=== PATIENT | female | born 1950 | race Caucasian/White ===

== ENCOUNTER 2023-09-17 10:17 | Emergency (ER) | payer OTHER, SELFPAY ==
--- NOTE | ~2023-09-17 | XR_ITS ---
EXAMINATION: XR femur RT min 2V INDICATION: Right leg pain TECHNIQUE: Two views of the right femur are obtained on four radiographs. COMPARISON: None available FINDINGS: Bone alignment is normal. There is no fracture of the femur. There is a nondisplaced fractu re of the fibular head. The soft tissues are unremarkable. There is mild osteoarthritis of the knee. IMPRESSION: 1. No fracture of the femur. 2. Nondisplaced fracture of the fibular head. Reviewed, dictated and finalized at location B. LEY WORKER
--- NOTE | ~2023-09-17 | XR_ITS ---
EXAMINATION: XR knee RT min 4V DATE: 09/17/2023 13:20 INDICATION: Right knee pain TECHNIQUE: Four views of the right knee were obtained. COMPARISON: None. FINDINGS: Bone alignment is normal. There is a nondisplaced fracture at the lateral aspect of the fib ular head. There is mild tricompartmental osteoarthritis characterized by tiny marginal osteophytes. No joint effusion/synovitis. Soft tissues are unremarkable. IMPRESSION: 1. Nondisplaced fracture at the lateral aspect of the fibular head. Reviewed, dictated and finalized at location B. TRUCTION SITE MANAGER
[2023-09-17 10:26] VITALS: BP 158/87; PULSE 93; RESP 16; TEMP 36.8; O2SAT 97
[2023-09-17] MEDS: ACETAMINOPHEN/CODEINE (*CRX) 300/30 MG TABLET 1 TAB PO (13:31)
[2023-09-17] MEDS: LIDOCAINE 5% PATCH 1 PATCH TRANSDERM (13:31)
--- NOTE | 2023-09-17 13:42 | ED.LOWEXIN ---
HPI - Extremity Injury (Lower) General Chief Complaint: Extremity Injury, Lower Stated Complaint: R leg pain Time Seen by Provider: 09/17/23 11:35 History of Present Illness HPI Narrative: 73-year-old female reports for evaluation for right posterior femur pain and mild right knee pain after a fall that occurred 4 days ago. Patient states she was walking in when she slipped on a clothes drying rack changer that was on the floor. States she landed on her bottom and her right leg was fully extended. States since then she has had pain to her posterior thigh. She did not hit her head or lose consciousness. Denies neck pain or back pain, denies other injuries acquired. 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 Related Data Allergies Allergy/AdvReac Type Severity Reaction Status Date / Time ibuprofen Allergy Intermediate Anaphylactic Verified 04/22/19 12:46 Shock Review of Systems Review of Systems: CONSTITUTIONAL: Denies fever, chills, or sweats. EYES: Denies visual changes, redness, or discharge. ENT: Denies rhinorrhea, congestion, sore throat, or otalgia. CARDIOVASCULAR: Denies chest pain, palpitations, or edema. RESPIRATORY: Denies cough or dyspnea. GASTROINTESTINAL: Denies abdominal pain, nausea, vomiting, or diarrhea. GENITOURINARY: Denies dysuria or hematuria. SKIN: Denies rash or itching. MUSCULOSKELETAL: See HPI NEUROLOGIC: Denies headache, numbness, or weakness. PSYCHIATRIC: Denies anxiety or depression. Exam Narrative: GENERAL: Well-appearing, well-nourished, and in no acute distress. HEAD: Normocephalic, atraumatic. EYES: PERRLA and EOMI. ENT: Nares clear, no rhinorrhea or epistaxis. Mucous membranes moist. NECK: Supple. No midline cervical spinous, no tenderness or deformities. BACK: No thoracolumbar spinous tenderness, step-offs or deformities. CHEST: Clear to auscultation. No respiratory distress. HEART: Regular rate and rhythm. No murmur heard. Normal peripheral pulses. ABDOMEN: Soft, nontender, nondistended, normal active bowel sounds. EXTREMITIES: RLE: Tenderness to the posterior femur without overlying edema, erythema or deformity. There is ecchymosis to the distal femur just superior to the knee. No tenderness to patella, medial or lateral joint line. Mild tenderness to proximal fibula. No tenderness to the hip or remainder of the tib-fib or ankle. Full range of motion of hip, knee and ankle. DP pulse 2 +. Sensation intact. Compartments throughout are soft. SKIN: Warm, dry, no rash. NEURO: No focal deficits. Alert and oriented x3 Course Vital Signs Vital signs: Vital Signs Temperature 98.2 F 09/17/23 10:26 Pulse Rate 93 09/17/23 10:26 Respiratory Rate 16 09/17/23 10:26 Blood Pressure 158/87 H 09/17/23 10:26 Pulse Oximetry 97 09/17/23 10:26 Temperature 98.2 F 09/17/23 10:26 Pulse Rate 93 09/17/23 10:26 Respiratory Rate 16 09/17/23 10:26 Blood Pressure 158/87 H 09/17/23 10:26 Pulse Oximetry 97 09/17/23 10:26 MDM - Extremity Injury (Lower) MDM Narrative Medical decision making narrative: 73-year-old female reports for evaluation after a mechanical fall that occurred 4 days ago. See HPI for further history. She did not hit her head or lose consciousness. Exam is significant for the above. Compartments are soft, she is neurovascularly intact. X-ray of the femur shows no fracture of the femur. There is a nondisplaced fracture of the fibular head as seen on the radiograph. Patient placed in a posterior OCL and provided crutches. She is prescribed Tylenol 3s by her PCP which she states she will take for pain. Encouraged rice and close orthopedic follow-up. Referral provided. Strict ED return precautions discussed. She is agreeable with the plan verbalized understanding. Discharged in stable condition. Discharge Plan Discharge Clinical Impression: Closed fibular fracture Qualifiers: Encounter type: initial en
[2023-09-17] MEDS: HYDROmorphone HCL INJ (*CRX) 1 MG/ML SYR IM (15:19)
[2023-09-17 15:20] VITALS: BP 150/80; PULSE 70; RESP 18; O2SAT 98
== END 2023-09-17 15:25 | disposition home or self-care (01) ==
PROVIDERS: Emergency Provider Physician Assistant; PCP Student in an Organized Health Care Education/Training Program
DX: S82.831A Other fracture of upper and lower end of right fibula, initial encounter for closed fracture (principal); W18.09XA Striking against other object with subsequent fall, initial encounter
CPT/HCPCS: 29505; 73552; 73564; 96372; 99284; A9270; J1170

== ENCOUNTER 2024-09-30 13:36 | Emergency (ER) | payer OTHER, SELFPAY ==
--- NOTE | ~2024-09-30 | XR_ITS ---
XR chest 2V Ordering provider: Odalis Rogers MD History: 74 years Female with . CP N/V AND SHORT OF BREATH INTERMITTENTLY SINCE . Comparison: April 22, 2019 FINDINGS: MEDIASTINUM: The cardiac silhouette is not enlarged. LUNGS: No infiltrates, effusions or pneumothorax. OTHER: No free air under the diaphragm. Degenerative changes of the spine with S-shaped scoliosis. IMPRESSION: No acute cardiopulmonary pathology. Reviewed, dictated and finalized at location A. IC[employer] SPECIALIST
--- NOTE | 2024-09-30 13:37 | ECG_ITS ---
Test Date: 2024-09-30 14:03:10 Measurements Intervals [place] Rate: 70 P: 10 TX: 164 QRS: -24 QRSD: 82 T: -2 QT: 401 QTc: 433 Interpretive Statements SINUS RHYTHM VOLTAGE CRITERIA FOR LVH [MEETS CRITERIA IN ONE OF: R(aVL), S(V1), R(V5), R(V5/V6)+S(V1)] POSSIBLE ANTERIOR MYOCARDIAL INFARCTION , OF INDETERMINATE AGE [30 ms Q WAVE IN V3/V4, OR R < 0.2 mV IN V4] No previous ECG available for comparison Electronically Signed On 10-04-2024 14:31:36 MARKETING TECHNOLOGIST by Tyrone Perez M.D.
[2024-09-30 13:46] VITALS: BP 130/67; PULSE 86; RESP 20; TEMP 36.3; O2SAT 99
--- NOTE | 2024-09-30 16:11 | ED_ITS ---
HPI - Chest Pain General Chief Complaint: Chest Pain <TRISTON Larkin Last Filed: 09/30/24 16:14> Stated Complaint: Chest pain/vomiting/UTI symptoms <TRISTON Larkin Last Filed: 09/30/24 16:14> Time Seen by Provider: 09/30/24 23:02 <TRISTON Larkin Last Filed: 09/30/24 16:14> Focused HPI: 74-year-old female with history of hypertension and CHF presents to the ED for multiple medical complaints. Patient states she has had chest pain to the anterior aspect of her chest, feels like someone is sitting on her chest for 1 week. No radiating symptoms, no exertional symptoms. Also reporting a productive cough and shortness of breath which has increased her baseline. Reports lower extremity edema that is unchanged from her baseline. Patient is also reporting a vaginal discharge for about 1 month. States it is green and brown. She is not sexually active and denies possibility of STDs. She is concerned she may have urinary tract infection and states her urine is malodorous. GENERAL: Well-appearing, well-nourished, and in no acute distress. HEAD: Normocephalic, atraumatic. CHEST: Clear to auscultation. ?No respiratory distress. HEART: Regular rate and rhythm.? NEURO: ?Alert and oriented x3. Patient screened in triage and initial orders placed.? ?Additional care and disposition to be based upon?diagnostic testing and treatment. <TRISTON Larkin Last Filed: 09/30/24 16:14> Related Data Home Medications: Home Medications ?Medication ?Instructions ?Recorded ?Confirmed ?Last Taken ?Type alprazolam PO DAILY 10/02/23 Unknown History pravastatin PO DAILY 10/02/23 Unknown History triamterene PO DAILY 10/02/23 Unknown History <TRISTON Larkin Last Filed: 09/30/24 16:14> Allergies/Adverse Reactions: Allergies Allergy/AdvReac Type Severity Reaction Status Date / Time ibuprofen Allergy Intermediate Anaphylactic Verified 09/30/24 13:51 Shock <TRISTON Larkin Last Filed: 09/30/24 16:14> Review of Systems 2 Review of Systems: CONSTITUTIONAL: Denies fever CARDIOVASCULAR: Reports chest pain RESPIRATORY: Reports cough and dyspnea. GASTROINTESTINAL: Reports nausea, vomiting GENITOURINARY: Reports vaginal discharge. Denies dysuria or hematuria. PSYCHIATRIC: Reports anxiety <Maria A Fernandes PA-C - Last Filed: 10/01/24 02:09> All systems reviewed & are unremarkable except as noted in HPI and below < Maria A Fernandes PA-C - Last Filed: 10/01/24 02:09> [facility] Past Medical History Medical History: Medical History (Updated 10/01/24 @ 02:05 by Maria A Fernandes PA-C) History of hyperlipidemia <Ginny Camarillo PA-C - Last Filed: 09/30/24 16:14> Social History Social History: Social History (Updated 10/02/23 @ 13:55 by Cira Mejia, [facility]) Smoking status: Never smoker Alcohol intake: never Occupation/Education: occupation 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 HEAD: Normocephalic, atraumatic. EYES: EOMI. ENT: Nares clear, no rhinorrhea or epistaxis. Mucous membranes moist. Oropharynx without tonsillar hypertrophy exudate or other lesions. Bilateral TMs pearly hamm non-bulging NECK: Supple. No adenopathy or masses. CHEST: Clear to auscultation. No respiratory distress. No wheezes rales or rhonchi HEART: Regular rate and rhythm. No murmur heard. Normal peripheral pulses. ABDOMEN: Soft, nontender, nondistended, normal active bowel sounds. EXTREMITIES: Normal range of motion. No edema. SKIN: Warm, dry, no rash. NEURO: No focal deficits. Alert and oriented x3. PSYCH: Normal mood and affect PELVIC: Normal external genitalia. Small amount of yellow discharge in the vaginal vault <Maria A Fernandes PA-C - Last Filed: 10/01/24 02:09> Course Course Emergency Course: Patient updated on her workup and agrees with plan of care. Resting comfortably. Tolerating oral intake. <Maria A Fernandes PA-C - Last Filed: 10/01/24 02:09> Vital Signs Vital signs: Vital Signs Temperature 97.4 F L 09/30/24 13:46 Pulse Rate 86 09/30/24 13:46 Respiratory Rate 20 09/30/24 13:46 Blood Pressure 130/67 09/30/24 13:46 Pulse Oximetry 99 09/30/24 13:46 Oxygen Delivery Room Air 09/30/24 13:46 Temperature 98.8 F 09/30/24 17:41 Pulse Rate 89 10/01/24 01:40 Respiratory Rate 18 10/01/24 01:40 Blood Pressure 145/63 H 10/01/24 01:40 Pulse Oximetry 100 10/01/24 01:40 Oxygen Delivery Room Air 09/30/24 22:53 <Ginny Camarillo PA-C - Last Filed: 09/30/24 16:14> Vital Signs Temperature 97.4 F L 09/30/24 13:46 Pulse Rate 86 09/30/24 13:46 Respiratory Rate 20 09/30/24 13:46 Blood Pressure 130/67 09/30/24 13:46 Pulse Oximetry 99 09/30/24 13:46 Oxygen Delivery Room Air 09/30/24 13:46 Temperature 98.8 F 09/30/24 17:41 Pulse Rate 89 10/01/24 01:40 Respiratory Rate 18 10/01/24 01:40 Blood Pressure 145/63 H 10/01/24 01:40 Pulse Oximetry 100 10/01/24 01:40 Oxygen Delivery Room Air 09/30/24 22:53 <Maria A Fernandes PA-C - Last Filed: 10/01/24 02:09> MDM - Chest Pain MDM Narrative Medical decision making narrative: Patient presents emergency department with several complaints. Reporting chest pain, shortness of breath, vomiting, vaginal discharge. She is afebrile nontoxic appearing. Her vitals are stable. CBC with mild leukocytosis to 11.9. Metabolic panel with evidence of mild dehydration. Urine with evidence of infection. Influenza, RSV and COVID screens are negative. Chest x-ray without acute cardiopulmonary abnormality. EKG without acute ST changes. Baseline, 3 hour troponin negative. Patient given Protonix, Zofran. Resting comfortably. Tolerating oral intake. Patient updated on her workup and agrees with plan of care. Will be started on oral antibiotics for UTI. She was given warnings to return the ER <Maria A Fernandes PA-C - Last Filed: 10/01/24 02:09> Differential Diagnosis Differential diagnosis: Likely stable angina, atypical chest pain, costochondritis and other (pneumonia, gastroenteritis, UTI, influenza, RSV, COVID) <Maria A Fernandes PA-C - Last Filed: 10/01/24 02:09> Lab Data Attestation: I reviewed the patient's lab results. <Maria A Fernandes PA-C - Last Filed: 10/01/24 02:09> Result diagrams: 09/30/24 16:30 09/30/24 16:30 <Ginny Camarillo PA-C - Last Filed: 09/30/24 16:14> Labs: Lab Results 09/30/24 09/30/24 10/01/24 Range/Units 16:30 19:12 00:33 WBC 11.9 H (4.5-10.0) K/mm3 RBC 4.42 (4.2-5.4) M/mm3 Hgb 14.3 (12.0-15.0) g/dL Hct 41.5 (37.0-47.0) % MCV 93.9 (80-100) fl MCH 32.4 (26-34) pg MCHC 34.5 (32-36) g/dl RDW 13.1 (11.5-14.5) % Plt Count 365 (150-375) k/mm3 MPV 9.3 (7.4-10.4) fl Immature Gran % (Auto) 0.3 (0-0.5) % Neut % (Auto) 71.6 (45.5-73.1) % Lymph % (Auto) 18.2 L (18.3-44.2) % [place] % (Auto) 8.5 (2.6-8.5) % Eos % (Auto) 0.8 (0-4.4) % Baso % (Auto) 0.6 (0.2-1.2) % Lymph # (Auto) 2.17 (0.9-3.2) K/mm3 [place] # (Auto) 1.0 H (0.1-0.6) K/mm3 Eos # (Auto) 0.1 (0-0.3) K/mm3 Baso # (Auto) 0.1 (0.0-0.1) K/mm3 Abs Immat Gran (auto) 0.04 H (0.00-0.031) K/mm3 Absolute Neuts (auto) 8.6 H (1.3-6.7) K/mm3 Absolute Nucleated RBC 0.000 (0.0-0.012) K/mm3 Nucleated RBC % 0.0 (0.0-0.2) % PT 13.2 (11.1-14.7) Seconds INR 1.0 APTT 30.5 (22.3-36.8) Seconds Sodium 137 (137-145) mmol/L Potassium 3.9 (3.4-5.0) mmol/L Chloride 104 (98-107) mmol/L Carbon Dioxide 27 (22-30) mmol/L Anion Gap 6 (4-12) mmol/L BUN 39 H (7-17) mg/dL Creatinine 1.20 H (0.7-1.0) mg/dL Estim Creat Clear Calc Not Reportable Estimated GFR 44 L (59 - ) Glucose 90 (65-110) mg/dL Calcium 10.3 H (8.4-10.2) mg/dL Total Bilirubin 1.1 (0.2-1.3) mg/dL AST 20 (14-36) U/L ALT 15 (6-35) U/L Alkaline Phosphatase 105 (38-126) U/L Troponin I < 0.012 < 0.012 (0.000-0.034) ng/mL Total Protein 8.0 (6.3-8.2) g/dL Albumin 4.6 (3.5-5.1) g/dL Lipase 136 (23-300) U/L Urine Color Yellow (Yellow) Urine Appearance Clear (Clear) Urine pH 5.0 (5.0-9.0) Ur Specific [place] 1.012 (1.001-1.035) Urine Protein Negative (Negative) mg/dL Urine Glucose (UA) Negative (Negative) mg/dL Urine Ketones Negative (Negative) mg/dL Ur Blood (Man) Trace (Negative) Urine Nitrate Negative (Negative) Urine Bilirubin Negative (Negative) Urine Urobilinogen 0.2 (<2.0) mg/dL Leukocyte Esterase Rfl 3+ H (Negative) LORENZO/UL Urine RBC 0-2 (0-2) /hpf Urine WBC >100 H (0-3) /hpf Ur Squamous Epith Cells None seen (Few) /hpf Urine Bacteria None seen /hpf Urine Casts 3-5 C. trachomatis (PCR) Influenza A (RT-PCR) Negative (Negative) Influenza B (RT-PCR) Negative (Negative) N. gonorrhoeae (PCR) RSV (RT-PCR) Negative (Negative) SARS-CoV-2 RNA (RT-PCR) Negative (Negative) T. vaginalis (PCR) (NOT DETECTE) Bact Vaginosis Panel Pending 10/01/24 Range/Units 00:36 WBC (4.5-10.0) K/mm3 RBC (4.2-5.4) M/mm3 Hgb (12.0-15.0) g/dL Hct (37.0-47.0) % MCV (80-100) fl MCH (26-34) pg MCHC (32-36) g/dl RDW (11.5-14.5) % Plt Count (150-375) k/mm3 MPV (7.4-10.4) fl Immature Gran % (Auto) (0-0.5) % Neut % (Auto) (45.5-73.1) % Lymph % (Auto) (18.3-44.2) % [place] % (Auto) (2.6-8.5) % Eos % (Auto) (0-4.4) % Baso % (Auto) (0.2-1.2) % Lymph # (Auto) (0.9-3.2) K/mm3 [place] # (Auto) (0.1-0.6) K/mm3 Eos # (Auto) (0-0.3) K/mm3 Baso # (Auto) (0.0-0.1) K/mm3 Abs Immat Gran (auto) (0.00-0.031) K/mm3 Absolute Neuts (auto) (1.3-6.7) K/mm3 Absolute Nucleated RBC (0.0-0.012) K/mm3 Nucleated RBC % (0.0-0.2) % PT (11.1-14.7) Seconds INR APTT (22.3-36.8) Seconds Sodium (137-145) mmol/L Potassium (3.4-5.0) mmol/L Chloride (98-107) mmol/L Carbon Dioxide (22-30) mmol/L Anion Gap (4-12) mmol/L BUN (7-17) mg/dL Creatinine (0.7-1.0) mg/dL Estim Creat Clear Calc Estimated GFR (59 - ) Glucose (65-110) mg/dL Calcium (8.4-10.2) mg/dL Total Bilirubin (0.2-1.3) mg/dL AST (14-36) U/L ALT (6-35) U/L Alkaline Phosphatase (38-126) U/L Troponin I (0.000-0.034) ng/mL Total Protein (6.3-8.2) g/dL Albumin (3.5-5.1) g/dL Lipase (23-300) U/L Urine Color (Yellow) Urine Appearance (Clear) Urine pH (5.0-9.0) Ur Specific [place] (1.001-1.035) Urine Protein (Negative) mg/dL Urine Glucose (UA) (Negative) mg/dL Urine Ketones (Negative) mg/dL Ur Blood (Man) (Negative) Urine Nitrate (Negative) Urine Bilirubin (Negative) Urine Urobilinogen (<2.0) mg/dL Leukocyte Esterase Rfl (Negative) LORENZO/UL Urine RBC (0-2) /hpf Urine WBC (0-3) /hpf Ur Squamous Epith Cells (Few) /hpf Urine Bacteria /hpf Urine Casts C. trachomatis (PCR) Pending Influenza A (RT-PCR) (Negative) Influenza B (RT-PCR) (Negative) N. gonorrhoeae (PCR) Pending RSV (RT-PCR) (Negative) SARS-CoV-2 RNA (RT-PCR) (Negative) T. vaginalis (PCR) Not detected (NOT DETECTE) Bact Vaginosis Panel <Ginny Camarillo PA-C - Last Filed: 09/30/24 16:14> Lab Results 09/30/24 09/30/24 10/01/24 Range/Units 16:30 19:12 00:33 WBC 11.9 H (4.5-10.0) K/mm3 RBC 4.42 (4.2-5.4) M/mm3 Hgb 14.3 (12.0-15.0) g/dL Hct 41.5 (37.0-47.0) % MCV 93.9 (80-100) fl MCH 32.4 (26-34) pg MCHC 34.5 (32-36) g/dl RDW 13.1 (11.5-14.5) % Plt Count 365 (150-375) k/mm3 MPV 9.3 (7.4-10.4) fl Immature Gran % (Auto) 0.3 (0-0.5) % Neut % (Auto) 71.6 (45.5-73.1) % Lymph % (Auto) 18.2 L (18.3-44.2) % [place] % (Auto) 8.5 (2.6-8.5) % Eos % (Auto) 0.8 (0-4.4) % Baso % (Auto) 0.6 (0.2-1.2) % Lymph # (Auto) 2.17 (0.9-3.2) K/mm3 [place] # (Auto) 1.0 H (0.1-0.6) K/mm3 Eos # (Auto) 0.1 (0-0.3) K/mm3 Baso # (Auto) 0.1 (0.0-0.1) K/mm3 Abs Immat Gran (auto) 0.04 H (0.00-0.031) K/mm3 Absolute Neuts (auto) 8.6 H (1.3-6.7) K/mm3 Absolute Nucleated RBC 0.000 (0.0-0.012) K/mm3 Nucleated RBC % 0.0 (0.0-0.2) % PT 13.2 (11.1-14.7) Seconds INR 1.0 APTT 30.5 (22.3-36.8) Seconds Sodium 137 (137-145) mmol/L Potassium 3.9 (3.4-5.0) mmol/L Chloride 104 (98-107) mmol/L Carbon Dioxide 27 (22-30) mmol/L Anion Gap 6 (4-12) mmol/L BUN 39 H (7-17) mg/dL Creatinine 1.20 H (0.7-1.0) mg/dL Estim Creat Clear Calc Not Reportable Estimated GFR 44 L (59 - ) Glucose 90 (65-110) mg/dL Calcium 10.3 H (8.4-10.2) mg/dL Total Bilirubin 1.1 (0.2-1.3) mg/dL AST 20 (14-36) U/L ALT 15 (6-35) U/L Alkaline Phosphatase 105 (38-126) U/L Troponin I < 0.012 < 0.012 (0.000-0.034) ng/mL Total Protein 8.0 (6.3-8.2) g/dL Albumin 4.6 (3.5-5.1) g/dL Lipase 136 (23-300) U/L Urine Color Yellow (Yellow) Urine Appearance Clear (Clear) Urine pH 5.0 (5.0-9.0) Ur Specific [place] 1.012 (1.001-1.035) Urine Protein Negative (Negative) mg/dL Urine Glucose (UA) Negative (Negative) mg/dL Urine Ketones Negative (Negative) mg/dL Ur Blood (Man) Trace (Negative) Urine Nitrate Negative (Negative) Urine Bilirubin Negative (Negative) Urine Urobilinogen 0.2 (<2.0) mg/dL Leukocyte Esterase Rfl 3+ H (Negative) LORENZO/UL Urine RBC 0-2 (0-2) /hpf Urine WBC >100 H (0-3) /hpf Ur Squamous Epith Cells None seen (Few) /hpf Urine Bacteria None seen /hpf Urine Casts 3-5 C. trachomatis (PCR) Influenza A (RT-PCR) Negative (Negative) Influenza B (RT-PCR) Negative (Negative) N. gonorrhoeae (PCR) RSV (RT-PCR) Negative (Negative) SARS-CoV-2 RNA (RT-PCR) Negative (Negative) T. vaginalis (PCR) (NOT DETECTE) Bact Vaginosis Panel Pending 10/01/24 Range/Units 00:36 WBC (4.5-10.0) K/mm3 RBC (4.2-5.4) M/mm3 Hgb (12.0-15.0) g/dL Hct (37.0-47.0) % MCV (80-100) fl MCH (26-34) pg MCHC (32-36) g/dl RDW (11.5-14.5) % Plt Count (150-375) k/mm3 MPV (7.4-10.4) fl Immature Gran % (Auto) (0-0.5) % Neut % (Auto) (45.5-73.1) % Lymph % (Auto) (18.3-44.2) % [place] % (Auto) (2.6-8.5) % Eos % (Auto) (0-4.4) % Baso % (Auto) (0.2-1.2) % Lymph # (Auto) (0.9-3.2) K/mm3 [place] # (Auto) (0.1-0.6) K/mm3 Eos # (Auto) (0-0.3) K/mm3 Baso # (Auto) (0.0-0.1) K/mm3 Abs Immat Gran (auto) (0.00-0.031) K/mm3 Absolute Neuts (auto) (1.3-6.7) K/mm3 Absolute Nucleated RBC (0.0-0.012) K/mm3 Nucleated RBC % (0.0-0.2) % PT (11.1-14.7) Seconds INR APTT (22.3-36.8) Seconds Sodium (137-145) mmol/L Potassium (3.4-5.0) mmol/L Chloride (98-107) mmol/L Carbon Dioxide (22-30) mmol/L Anion Gap (4-12) mmol/L BUN (7-17) mg/dL Creatinine (0.7-1.0) mg/dL Estim Creat Clear Calc Estimated GFR (59 - ) Glucose (65-110) mg/dL Calcium (8.4-10.2) mg/dL Total Bilirubin (0.2-1.3) mg/dL AST (14-36) U/L ALT (6-35) U/L Alkaline Phosphatase (38-126) U/L Troponin I (0.000-0.034) ng/mL Total Protein (6.3-8.2) g/dL Albumin (3.5-5.1) g/dL Lipase (23-300) U/L Urine Color (Yellow) Urine Appearance (Clear) Urine pH (5.0-9.0) Ur Specific [place] (1.001-1.035) Urine Protein (Negative) mg/dL Urine Glucose (UA) (Negative) mg/dL Urine Ketones (Negative) mg/dL Ur Blood (Man) (Negative) Urine Nitrate (Negative) Urine Bilirubin (Negative) Urine Urobilinogen (<2.0) mg/dL Leukocyte Esterase Rfl (Negative) LORENZO/UL Urine RBC (0-2) /hpf Urine WBC (0-3) /hpf Ur Squamous Epith Cells (Few) /hpf Urine Bacteria /hpf Urine Casts C. trachomatis (PCR) Pending Influenza A (RT-PCR) (Negative) Influenza B (RT-PCR) (Negative) N. gonorrhoeae (PCR) Pending RSV (RT-PCR) (Negative) SARS-CoV-2 RNA (RT-PCR) (Negative) T. vaginalis (PCR) Not detected (NOT DETECTE) Bact Vaginosis Panel <Maria A Fernandes PA-C - Last Filed: 10/01/24 02:09> Imaging Data Radiologist's impression: ITS Impressions Chest X-Ray 09/30/24 15:03 IMPRESSION: No acute cardiopulmonary pathology. <TRISTON Parra Last Filed: 10/01/24 02:09> ECG Data EKG #1: ECG completion date: 11/01/24 <TRISTON Parra Last Filed: 10/01/24 02:09> EKG Interpretation: normal rate, sinus rhythm, no ST changes and normal QT <TRISTON Parra Last Filed: 10/01/24 02:09> Critical Care Time Critical Care Time Critical Care Time: No <TRISTON Parra Last Filed: 10/01/24 02:09> Discharge Plan Discharge Clinical Impression: Acute UTI Chest pain Qualifiers: Chest pain type: unspecified Qualified Code(s): R07.9 - Chest pain, unspecified <TRISTON Larkin Last Filed: 09/30/24 16:14> Patient Disposition: Home, Self-Care <TRISTON Larkin Last Filed: 09/30/24 16:14> Condition: Improved <Ginny Camarillo PA-C - Last Filed: 09/30/24 16:14> Instructions: Chest Pain (ED), Urinary Tract Infection in Older Adults (ED) <TRISTON Larkin Last Filed: 09/30/24 16:14> Additional Instructions: Return to the ER if you experience fever, worsening chest pain, shortness of breath, abdominal pain with nausea and vomiting, you are unable to keep down liquids or solids, or any other symptoms that are concerning to you Remain well hydrated. Take oral antibiotic as prescribed Follow up with primary care doctor <TRISTON Larkin Last Filed: 09/30/24 16:14> Patient Language: [place]ian <TRISTON Larkin Last Filed: 09/30/24 16:14> Prescriptions: New cefdinir 300 mg capsule 300 mg PO Q12H 7 Days Qty: 14 0RF No Action alprazolam PO DAILY triamterene PO DAILY pravastatin PO DAILY <Ginny Camarillo PA-C - Last Filed: 09/30/24 16:14> Follow-up/Referrals: Bill,MD Nimisha [Primary Care Provider] - <TRISTON Larkin Last Filed: 09/30/24 16:14> Quality HEART score for chest pain patients History: slightly suspicious <Maria A Fernandes PA-C - Last Filed: 10/01/24 02:09> ECG: normal <TRISTON Parra Last Filed: 10/01/24 02:09> Age: > or = to 65 years <TRISTON Parra Last Filed: 10/01/24 02:09> Risk factors: 1 or 2 risk factors <Maria A Fernandes PA-C - Last Filed: 10/01/24 02:09> Troponin: < or = to 1x normal limit <TRISTON Parra Last Filed: 10/01/24 02:09> Heart score: 3 <TRISTON Parra Last Filed: 10/01/24 02:09>
[2024-09-30 16:38] LABS: Basophils Absolute Auto 0.1 K/mm3 (0.0-0.1); Basophils Percent Auto 0.6 % (0.2-1.2); Eosinophils Absolute Auto 0.1 K/mm3 (0-0.3); Eosinophils Percent Auto 0.8 % (0-4.4); Hematocrit 41.5 % (37.0-47.0); Hemoglobin 14.3 g/dL (12.0-15.0); Immature Granulocyte Absolute 0.04 K/mm3 (0.00-0.031); Immature Granulocyte Percent A 0.3 % (0-0.5); Lymphocytes Absolute Auto 2.17 K/mm3 (0.9-3.2); Lymphocytes Percent Auto 18.2 % (18.3-44.2); Mean Corpuscular HGB Conc 34.5 g/dl (32-36); Mean Corpuscular Hemoglobin 32.4 pg (26-34); Mean Corpuscular Volume 93.9 fl (80-100); Mean Platelet Volume 9.3 fl (7.4-10.4); Monocytes Percent Auto 8.5 % (2.6-8.5); Neutrophils Absolute Auto 8.6 K/mm3 (1.3-6.7); Neutrophils Percent Auto 71.6 % (45.5-73.1); Platelet Count Result 365 k/mm3 (150-375); Red Blood Count 4.42 M/mm3 (4.2-5.4); Red Cell Distribution Width 13.1 % (11.5-14.5); White Blood Count 11.9 K/mm3 (4.5-10.0)
[2024-09-30 16:49] LABS: Alanine Aminotransferase 15 U/L (6-35); Albumin Level 4.6 g/dL (3.5-5.1); Alkaline Phosphatase 105 U/L (38-126); Anion Gap 6 mmol/L (4-12); Aspartate Amino Transferase 20 U/L (14-36); Bilirubin,Total 1.1 mg/dL (0.2-1.3); Blood Urea Nitrogen 39 mg/dL (7-17); Calcium 10.3 mg/dL (8.4-10.2); Carbon Dioxide 27 mmol/L (22-30); Chloride 104 mmol/L (98-107); Estimated Glomerular Filt Rate 44; Glucose 90 mg/dL (65-110); Lipase 136 U/L (23-300); Potassium 3.9 mmol/L (3.4-5.0); Sodium 137 mmol/L (137-145)
[2024-09-30 16:54] LABS: Prothrombin Time 13.2 Seconds (11.1-14.7)
[2024-09-30 16:55] LABS: Partial Thromboplastin Time 30.5 Seconds (22.3-36.8)
[2024-09-30 17:00] LABS: Troponin I < 0.012 ng/mL (0.000-0.034)
[2024-09-30 17:19] LABS: Influenza A QL RT-PCR Negative (Negative); Influenza B QL RT-PCR Negative (Negative); RSV RNA, RT-PCR Negative (Negative); SARS-CoV-2 RNA PCR Negative (Negative)
[2024-09-30 17:41] VITALS: BP 144/85; PULSE 72; RESP 18; TEMP 37.1; O2SAT 98
--- NOTE | 2024-09-30 19:30 | ECG_ITS ---
Test Date: 2024-09-30 19:04:02 Measurements Intervals [place] Rate: 79 P: 7 GA: 171 QRS: -19 QRSD: 88 T: 29 QT: 326 QTc: 374 Interpretive Statements SINUS RHYTHM VOLTAGE CRITERIA FOR LVH [MEETS CRITERIA IN ONE OF: R(aVL), S(V1), R(V5), R(V5/V6)+S(V1)] POSSIBLE ANTERIOR MYOCARDIAL INFARCTION , PROBABLY OLD [30 ms Q WAVE IN V3/V4, OR R < 0.2 mV IN V4] Compared to ECG 09/30/2024 14:03:10 No significant changes Electronically Signed On 10-04-2024 14:49:41 [employer]AME C[employer]TING MACHINE OPERATOR by Tyrone Perez M.D.
[2024-09-30 19:39] LABS: Troponin I < 0.012 ng/mL (0.000-0.034)
[2024-09-30 19:45] LABS: Add Urine Microscopic? YES; Appearance Urine Clear (Clear); Bacteria Urine None Seen /hpf; Bilirubin Urine Negative (Negative); Blood Urine Trace (Negative); Color Urine Yellow (Yellow); Glucose Urine UA Negative (Negative); Ketones Urine Negative (Negative); Leukocyte Esterase Ur 3+ LEU/UL (Negative); Nitrate Urine Negative (Negative); Protein Urine Negative (Negative); RBC Urine 0-2 /hpf (0-2); Specific Grav Ur 1.012 (1.001-1.035); Squamous Epithelial Cell Urine None Seen /hpf (Few); Urobilinogen Urine 0.2 mg/dL (<2.0); WBC Urine >100 /hpf (0-3)
[2024-09-30 22:53] VITALS: PULSE 67; O2SAT 95
[2024-09-30 23:14] VITALS: BP 144/65; PULSE 62; RESP 18; O2SAT 96
[2024-10-01] MEDS: SODIUM CHLORIDE 0.9% IV 500 ML 999 ML IV CONT (00:29)
[2024-10-01 00:30] VITALS: BP 97/78; PULSE 61; RESP 16; O2SAT 99
[2024-10-01] MEDS: ONDANSETRON INJ 4 MG/2 ML VIAL IV PUSH (00:30)
[2024-10-01] MEDS: PANTOPRAZOLE SODIUM IV 40 MG VIAL IV PUSH (00:30)
[2024-10-01 01:32] VITALS: BP 94/33; PULSE 58; RESP 18; O2SAT 98
[2024-10-01 01:40] VITALS: BP 145/63; PULSE 89; RESP 18; O2SAT 100
[2024-10-01 01:51] LABS: Trichomonas Vag PCR NOT DETECTED (NOT DETECTE)
[2024-10-01 02:14] LABS: Chlamydia trachomatis NOT DETECTED (NOT DETECTE); Neisseria gonorrhoeae PCR NOT DETECTED (NOT DETECTE)
[2024-10-01] MEDS: CEFDINIR 300 MG CAPSULE PO (02:20)
[2024-10-02 10:58] LABS: Bacterial Vaginosis NEGATIVE (NEGATIVE)
== END 2024-10-01 02:26 | disposition home or self-care (01) ==
PROVIDERS: Physician Assistant; Student in an Organized Health Care Education/Training Program; Emergency Provider Physician Assistant; PCP Student in an Organized Health Care Education/Training Program
DX: N39.0 Urinary tract infection, site not specified (principal); R07.9 Chest pain, unspecified; Z20.822 Contact with and (suspected) exposure to COVID-19; Z11.3 Encounter for screening for infections with a predominantly sexual mode of transmission; I50.9 Heart failure, unspecified; I11.0 Hypertensive heart disease with heart failure; E78.5 Hyperlipidemia, unspecified; R94.31 Abnormal electrocardiogram [ECG] [EKG]
CPT/HCPCS: 36415; 71046; 80053; 81001; 81513; 83690; 84484; 85025; 85610; 85730; 87070; 87086; 87491; 87591; 87637; 87661; 93005; 96361; 96374; 96375; 99284; A9270; J2405; J2470; J7040